=== PATIENT | male | born 1995 | race Caucasian/White ===

== ENCOUNTER 2025-05-03 01:22 | Emergency (ER) | payer MEDICAID | END 2025-05-03 02:16 | disposition home or self-care (01) | LOC: MW.ED 01:22 | DX: K04.7 Periapical abscess without sinus (principal); K02.9 Dental caries, unspecified; F17.200 Nicotine dependence, unspecified, uncomplicated; Z75.3 Unavailability and inaccessibility of health-care facilities | CPT/HCPCS: 99282; A9270; 99283 ==